=== PATIENT | male | born 1975 | race Two or more races ===

== ENCOUNTER 2022-04-24 18:00 | Emergency (ER) | payer SELFPAY ==
[~2022-04-24] VITALS: Ht 167.6 cm; Wt 95.3 kg
[2022-04-24] MEDS ORDERED: PIPERACILLIN-TAZOB 3.375GM 100 ML IV ONE (18:30)
[2022-04-24] MEDS ORDERED: VANCOMYCIN 1GM/250ML 250 ML IV ONE (18:30)
[2022-04-24] MEDS ORDERED: IOHEXOL 300 MG/ML 100ML BOTTLE IJ ONE (18:35)
[2022-04-24 18:58] LABS: Basophils # (auto) 0.2 10 ^3/uL (0-0.2); Basophils % (auto) 2.7 % (0.0-2.0); Eosinophils # (auto) 0.5 10 ^3/uL (0-0.8); Eosinophils % (auto) 7.1 % (0.0-7.0); Hematocrit 44.6 % (41.0-53.0); Hemoglobin 14.9 g/dL (13.5-17.5); Lymphocytes # (auto) 2.6 10 ^3/uL (0.4-5.4); Lymphocytes % (auto) 38.2 % (10.0-50.0); Mean Corpuscular Hemoglobin 29.8 pg (28.0-32.0); Mean Corpuscular Hgb Conc. 33.4 g/dL (32.0-36.0); Mean Corpuscular Volume 89.1 fL (80.0-100.0); Monocytes # (auto) 0.7 10 ^3/uL (0-1.3); Monocytes % (auto) 10.8 % (0.0-12.0); Neutrophils # (auto) 2.8 10 ^3/uL (1.6-8.6); Neutrophils % (auto) 41.2 % (37.0-80.0); Nucleated Red Blood Cells % 0.1 %; Red Cell Distribution Width 13.7 % (11.8-14.3); White Blood Cell 6.9 10^3/uL (4.4-10.8)
[2022-04-24 19:16] LABS: Albumin 3.7 g/dL (3.4-5.0); CRP High Sensitivity 0.1 mg/dL (< 0.3); Calcium 8.7 mg/dL (8.5-10.1); Potassium 4.2 mmol/L (3.5-5.1)
[2022-04-24 19:19] LABS: Bilirubin, Total 0.3 mg/dL (0.2-1.0); Total Protein 7.4 g/dL (6.4-8.2)
[2022-04-24] MEDS ORDERED: SULF400T11 PO (22:23)
[2022-04-24] MEDS ORDERED: CEPH-509 PO (22:23)
[2022-04-24 23:45] VITALS: BP 133/88
== END 2022-04-24 23:52 | disposition home or self-care (01) ==
LOC: ER 18:00
DX: L03.116 Cellulitis of left lower limb (principal)
CPT/HCPCS: 36415; 73701; 80053; 85025; 86141; 93971; 96365; 99285; J3370; J7030; Q9967

== ENCOUNTER 2022-04-27 14:27 | Emergency (ER) | payer SELFPAY ==
[~2022-04-27] VITALS: Ht 167.6 cm; Wt 100.2 kg
[~2022-04-27 14:27] MED LIST: CEPH-509 PO; SULF400T11 PO
[2022-04-27 16:03] VITALS: BP 120/83
[2022-04-27] MEDS ORDERED: CEPH-509 PO (16:45)
== END 2022-04-27 17:16 | disposition home or self-care (01) ==
LOC: ER 14:27
DX: S91.332D Puncture wound without foreign body, left foot, subsequent encounter (principal); X58.XXXD Exposure to other specified factors, subsequent encounter